=== PATIENT | female | born 1945 | race Caucasian/White ===

== ENCOUNTER 2016-08-29 17:15 | Emergency (ER) | payer MEDICARE, BC ==
--- NOTE | 2016-08-29 17:29 | EDM.PDOC ---
ED HPI GENERAL MEDICAL PROBLEM - General Stated Complaint: LT ARM INJURY Time Seen by Provider: 08/29/16 17:15 Source of Information: Reports: Patient, Family History Limitations: Reports: No Limitations - History of Present Illness INITIAL COMMENTS - FREE TEXT/NARRATIVE: 70 years old w f fell while walking her dog onto her left forearm. Pt walked into the ed, holding her left wrist close to her trunk. Pt denied other symptoms beside the left wrist pain with movement. Onset: Sudden Onset Date: 08/29/16 Onset Time: 16:20 Duration: Minutes: Location: Reports: Upper Extremity, Left Quality: Reports: Ache Severity: Moderate Improves with: Reports: Immobilization Worsens with: Reports: Movement Context: Reports: Trauma Associated Symptoms: Reports: No Other Symptoms - Related Data Allergies Allergy/AdvReac Type Severity Reaction Status Date / Time ketorolac [From Toradol] Allergy Rash Verified 08/29/16 18:07 Home Meds: Home Meds Fexofenadine [Victoria] 180 mg PO DAILY 08/29/16 [History] Fluticasone Propionate [Fluticasone Propionate] 2 sprays MAIKEL DAILY 08/29/16 [ History] Levothyroxine Sodium [Synthroid] 150 mg PO DAILY 08/29/16 [History] Review of Systems - Review of Systems Review Of Systems: See Below Constitutional: Reports: No Symptoms Eyes: Reports: No Symptoms Ears: Reports: No Symptoms Nose: Reports: No Symptoms Mouth/Throat: Reports: No Symptoms Respiratory: Reports: No Symptoms Cardiovascular: Reports: No Symptoms GI/Abdominal: Reports: No Symptoms Genitourinary: Reports: No Symptoms Musculoskeletal: Reports: Joint Pain (left wrist) Skin: Reports: No Symptoms Neurological: Reports: No Symptoms Psychiatric: Reports: No Symptoms Trauma Exam - Physical Exam Exam: See Below Exam Limited By: No Limitations General Appearance: Reports: Alert, WD/WN, Mild Distress Head: Reports: Atraumatic, Normocephalic Eyes: Bilateral Eye: Normal Inspection Ears: Reports: Normal External Exam, Normal Canal Nose: Reports: Normal Inspection, Normal Mucousa, No Blood Throat/Mouth: Reports: Normal Inspection, Normal Lips, Normal Teeth Neck: Reports: Non-Tender, Full Range of Motion, Normal Alignment, Normal Inspection Respiratory Exam: Reports: No Respiratory Distress, Lungs Clear, Normal Breath Sounds, No Accessory Muscle Use, Chest Non-Tender Cardiovascular: Reports: Normal Peripheral Pulses, Regular Rate, Rhythm, No Edema GI/Abdominal: Reports: Normal Bowel Sounds, Soft, Non-Tender (Female) Exam: Deferred Rectal (Female) Exam: Deferred Back: Reports: Full Range of Motion, Normal Inspection, Non-Tender Extremities: Bony-Point Tenderness (left wrist), Pain with Movement, Tenderness 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 Pt walked into the ed, holding her left wrist close to her trunk. Pt denied other symptoms beside the left wrist pain with movement. PE: deformity left wrist, CAP refill <2 sec, Limited ROM due to pain Imaging: Closed comminuted left distal radius fx Impression: Closed comminuted left distal radius fx Procedure: Splint application, long, left arm Tx: Motrin (not allergic to motrin) Reexam: Improved Consultation: Dr. Lewis, Ortho: Pt needs to see a hand surgeon Consultation: Dr. Bryant, Hand surgeon, [facility]: Can see her tomorrow, surgery next week. Plab: D/c home with instructions Last Recorded V/S: Last Vital Signs Temp 36.7 C 08/29/16 18:00 Pulse 60 08/29/16 18:00 Resp 18 08/29/16 18:00 BP 141/86 H 08/29/16 18:00 Pulse Ox 99 08/29/16 18:00 - Orders/Labs/Meds Orders: Active Orders 24 hr Category Date Time Status Forearm 2V Lt [CR] Stat Exams 08/29/16 17:24 Taken Meds: Medications Discontinued Medications Generic Name Dose Route Start Last Admin Trade Name Freq PRN Reason Stop Dose Admin Ibuprofen 600 mg 08/29/16 18:08 08/29/16 18:18 Motrin PO 08/29/16 18:09 600 mg ONETIME ONE Administration Departure - Departure Time of Disposition: 18:59 Disposition: Home, Self-Care 01 Condition: good Clinical Impression: Wrist fracture, left Qualifiers: Encounter type: initial encounter Fracture type: closed Qualified Code(s): S62.102A - Fracture of unspecified carpal bone, left wrist, initial encounter for closed fracture Fall Qualifiers: Encounter type: initial encounter Qualified Code(s): W19.XXXA - Unspecified fall, initial encounter - Discharge Information Referrals: Hui Torres PA [Primary Care Provider] - Forms: ED Department Discharge Additional Instructions: Rest, ICE and elevation of left arm, Vicodin for severe pain, Please call Dr. Bryant tomorrow for an appointment, phone number: [phone], Please come back to the ed if your symptoms get worse acutely. - My Orders Last 24 Hours: My Active Orders 08/29/16 17:24 Forearm 2V Lt [CR] Stat - Assessment/Plan Last 24 Hours: My Active Orders 08/29/16 17:24 Forearm 2V Lt [CR] Stat
[2016-08-29 18:07] VITALS: BP 141/86
[2016-08-29] MEDS ORDERED: Ibuprofen 600 MG Tab PO ONE (18:08)
[2016-08-29] MEDS ORDERED: Acetaminophen/HYDROcodone 325-5 MG Tab PO ONE (19:05)
--- NOTE | 2016-08-30 10:26 | CR ---
INDICATION: Tripped while walking dog. Wrist pain. LEFT FOREARM: Three views of the left forearm revealed a comminuted fracture of the distal radial metaphysis with anterior angulation at the fracture site and marked dorsal angulation of the radial joint surface. An ulnar styloid fracture is also noted and appears comminuted. Shift of ulnar styloid fracture fragments laterally is noted. The distal radial fracture fragments are slightly laterally shifted. The fracture lines extend through the joint surface with slight separation. Degenerative changes are noted at the first metacarpal carpal joint and navicular multangular joints. IMPRESSION: Colles' fracture of the radius and ulna with significant deformity. MTDD
== END 2016-08-29 19:20 | disposition home or self-care (01) ==
LOC: FB.ED 17:15
DX: S52.532A Colles' fracture of left radius, initial encounter for closed fracture (principal); S52.602A Unspecified fracture of lower end of left ulna, initial encounter for closed fracture; Z88.8 Allergy status to other drugs, medicaments and biological substances; Z79.899 Other long term (current) drug therapy; W19.XXXA Unspecified fall, initial encounter
CPT/HCPCS: 29105; 73090; 99283; A9270

== ENCOUNTER 2016-08-31 19:36 | Emergency (ER) | payer MEDICARE, BC ==
[2016-08-31] MEDS ORDERED: Acetaminophen/HYDROcodone 325-5 MG Tab PO ONE (20:52)
[2016-08-31] MEDS ORDERED: traMADol 50 MG Tab PO ONE (20:52)
[2016-08-31 20:57] VITALS: BP 134/72
--- NOTE | 2016-09-01 04:28 | ER ---
DATE SEEN: 08/31/2016 REASON FOR VISIT: Left fractured wrist. HISTORY OF PRESENT ILLNESS: A 70-year-old female with a fracture of the left wrist. She has surgery coming up next week, but the pain is throbbing type on the splint that was placed. She has been taking hydrocodone at night with some improvement. Because of the upcoming surgery, she cannot use NSAIDs. CURRENT MEDICATIONS: Reviewed. ALLERGIES: She is allergic to codeine, penicillins, and ketorolac. PHYSICAL EXAMINATION: GENERAL: She is not in distress. VITAL SIGNS: Her blood pressure is normal. She is afebrile. EXTREMITIES: Left wrist revealed an ulnar gutter splint, which was removed. There was swelling of the dorsum, but peripheral pulses are present, and there were good capillary refills peripherally. LABORATORY DATA: X-ray was reviewed that showed compacted fracture of the radius. IMPRESSION: Radial fracture. PLAN: I removed the splint and replaced it a brace that is removable. She will continue ice and elevation. A new prescription for hydrocodone 1 tablet t.i.d. p.r.n. was given and follow up with Dr. Bryant next week for surgical treatment. TIME SEEN: 8:45 p.m. /[id number] LUKAS/MARQUIS
== END 2016-08-31 20:40 | disposition home or self-care (01) ==
LOC: FB.ED 19:36
DX: S52.92XA Unspecified fracture of left forearm, initial encounter for closed fracture (principal); Z88.0 Allergy status to penicillin; Z88.6 Allergy status to analgesic agent; X58.XXXA Exposure to other specified factors, initial encounter
CPT/HCPCS: 29125; 99283; A9270-GY

== ENCOUNTER 2017-12-22 08:53 | Emergency (ER) | payer MEDICARE, BC ==
--- NOTE | 2017-12-22 09:30 | EDM.PDOC ---
ED HPI GENERAL MEDICAL PROBLEM - General Chief Complaint: Neuro Symptoms/Deficits Stated Complaint: POSSIBLE STOKE Time Seen by Provider: 12/22/17 08:55 Source of Information: Reports: Patient History Limitations: Reports: Altered Mental Status - History of Present Illness INITIAL COMMENTS - FREE TEXT/NARRATIVE: 72 y.o.w.f wit PTSD came to the ED with neighbors because she woke up this morning and was confused, had a burning sensation at her right pos xander. Has difficulty finding the words. Denied stroke symptoms in the past. pt is able to walk fine and denies any weakness of loss of neurological function. No palpitatins, no C/P no N/V/D or dizziness or any other acute medical issues. BP 152/80 RR 17 pulse ox 100% on RA pulse 73 temp 98.6 Onset Date: 12/22/17 Onset Time: 06:00 Duration: Hour(s):, Intermittent Location: Reports: Head Quality: Reports: Other (forgetfulness) Severity: Mild Improves with: Reports: None Worsens with: Reports: None Context: Reports: Other (HTN, Choesterol?) Associated Symptoms: Reports: Confusion - Related Data Allergies Allergy/AdvReac Type Severity Reaction Status Date / Time ketorolac [From Toradol] Allergy Rash Verified 12/22/17 09:32 Penicillins Allergy Rash Verified 12/22/17 09:32 tramadol Allergy Rash Verified 12/22/17 09:32 Home Meds: Home Meds Fexofenadine [Victoria] 180 mg PO DAILY 08/29/16 [History] Fluticasone Propionate 2 sprays MAIKEL DAILY 08/29/16 [History] Levothyroxine Sodium [Synthroid] 150 mg PO DAILY 08/29/16 [History] Lansoprazole [Prevacid] 30 mg PO DAILY 12/22/17 [History] PARoxetine HCl [Paroxetine Cr] 25 mg PO DAILY 12/22/17 [History] Past Medical History Gastrointestinal History: Reports: GERD Psychiatric History: Reports: Anxiety, Depression, PTSD - Past Surgical History Musculoskeletal Surgical History: Reports: Other (See Below) Other Musculoskeletal Surgeries/Procedures:: rotator cuff Social & Family History - Caffeine Use Caffeine Use: Reports: Coffee Other Caffeine Use: Pt drinks two cups of coffee a day. ED ROS GENERAL - Review of Systems Review Of Systems: See Below Constitutional: Reports: No Symptoms HEENT: Reports: No Symptoms Respiratory: Reports: No Symptoms Cardiovascular: Reports: No Symptoms Endocrine: Reports: No Symptoms GI/Abdominal: Reports: No Symptoms : Reports: No Symptoms Musculoskeletal: Reports: No Symptoms Skin: Reports: No Symptoms Neurological: Reports: Confusion, Numbness (right post xander, described as burning(?)), Other (word finding difficulties) Psychiatric: Reports: No Symptoms Hematologic/Lymphatic: Reports: No Symptoms Immunologic: Reports: No Symptoms ED EXAM, NEURO - Physical Exam Exam: See Below Exam Limited By: Altered Mental Status General Appearance: Alert, WD/WN, Mild Distress Eye Exam: Bilateral Eye: Normal Inspection Ears: Normal External Exam Nose: Normal Inspection Throat/Mouth: Normal Inspection, Normal Lips, Normal Voice, No Airway Compromise Head Exam: Atraumatic, Normocephalic Neck: Normal Inspection, Supple, Non-Tender, Full Range of Motion Respiratory/Chest: No Respiratory Distress, Lungs Clear, Normal Breath Sounds, Chest Non-Tender Cardiovascular: Normal Peripheral Pulses, Regular Rate, Rhythm, No Edema, No Gallop, No Murmur, No Rub GI/Abdominal: Normal Bowel Sounds, Soft, Non-Tender, No Organomegaly, No Distention, No Abnormal Bruit, No Mass, Pelvis Stable (Female) Exam: Deferred Rectal (Female) Exam: Deferred Neurological: Alert, Normal Dorsiflexion, CN II-XII Intact, Normal Plantar Flexion, Normal Gait, Oriented x 3 Back Exam: Normal Inspection Extremities: Normal Inspection Psychiatric: Normal Affect, Normal Mood Skin Exam: Warm, Dry, Intact, Normal Color, No Rash EKG INTERPRETATION EKG Date: 12/22/17 Time: 10:10 Rhythm: NSR Rate (Beats/Min): 66 [place]: Normal P-Wave: Present QRS: Normal ST-T: Normal QT: Normal Comparison: NA - No Prior EKG EKG Interpretation Comments: occ pvcs Course - Vital Signs Text/Narrative:: 72 y.o.w.f wit PTSD came to the ED with neighbors because she woke up this morning and was confused, had a burning sensation at her right pos xander. Has difficulty finding the words. Denied stroke symptoms in the past. pt is able to walk fine and denies any weakness of loss of neurological function. No palpitatins, no C/P no N/V/D or dizziness or any other acute medical issues. BP 152/80 RR 17 pulse ox 100% on RA pulse 73 temp 98.6 PE: WNWN anxious W F with word finding difficulties, in NAD, pt was ambulating fine, no focal weakness Labs: WBC 2.7 Neutros 48% Na 133 Cholesterol 243, reminder of the lab was neg. Imaging: CT head: Poss minor lacunar infarct (old) MRI: No acute intracranial findings, age related changes are present Impression: Elevated BP, Elevated cholesterol, neutopenia TxL Clonidine. Reexam: pt was doing fine in the ed. her bP improved to 143/70 Plan: D/C with instructions Last Recorded V/S: Last Vital Signs Temp 36.6 C 12/22/17 11:00 Pulse 87 12/22/17 08:55 Resp 18 12/22/17 12:15 BP 130/98 H 12/22/17 12:22 Pulse Ox 99 12/22/17 12:15 - Orders/Labs/Meds Orders: Active Orders 24 hr Category Date Time Status EKG Documentation Completion [RC] ASDIRECTED Care 12/22/17 10:04 Inactive Brain wo Cont [MR] Stat Exams 12/22/17 10:17 Taken UA W/MICROSCOPIC [URIN] Stat Lab 12/22/17 10:15 Ordered EKG 12 Lead [EK] Routine Ther 12/22/17 10:03 Ordered EKG 12 Lead [EK] Routine Ther 12/22/17 10:03 Stop Req Labs: Laboratory Tests 12/22/17 12/22/17 12/22/17 Range/Units 09:37 09:37 09:37 WBC 2.9 L (4.5-12.0) X10-3/uL RBC 4.70 (3.23-5.20) x10(6)uL Hgb 14.7 (11.5-15.5) g/dL Hct 43.9 (30.0-51.3) % MCV 93.5 (80-96) fL MCH 31.4 (27.7-33.6) pg MCHC 33.5 (32.2-35.4) g/dL RDW 12.4 (11.5-15.5) % Plt Count 254 (125-369) X10(3)uL MPV 9.1 (7.4-10.4) fL Neut % (Auto) 45.9 L (46-82) % Lymph % (Auto) 40.0 H (13-37) % [place] % (Auto) 10.6 (4-12) % Eos % (Auto) 2 (1.0-5.0) % Baso % (Auto) 2 (0-2) % Neut # (Auto) 1.4 L (1.6-8.3) # Lymph # (Auto) 1.1 (0.6-5.0) # [place] # (Auto) 0.3 (0.0-1.3) # Eos # (Auto) 0.1 (0.0-0.8) # Baso # (Auto) 0.0 (0.0-0.2) # PT 9.9 (8.7-11.1) INR 1.02 (0.89-1.13) Sodium 134 L (135-145) mmol/L Potassium 4.4 (3.5-5.3) mmol/L Chloride 102 (100-110) mmol/L Carbon Dioxide 27 (21-32) mmol/L BUN 11 (7-18) mg/dL Creatinine 0.8 (0.55-1.02) mg/dL Est Cr Clr Drug Dosing 58.88 mL/min Estimated GFR (MDRD) > 60 (>60) BUN/Creatinine Ratio 13.8 (9-20) Glucose 105 (80-116) mg/dL Calcium 9.4 (8.6-10.2) mg/dL Triglycerides (15-150) mg/dL Cholesterol (50-200) mg/dL LDL Cholesterol Direct (60-130) mg/dL HDL Cholesterol (40-75) mg/dL Cholesterol/HDL Ratio (0-5) TSH, Ultra Sensitive (0.36-3.74) IU/mL Urine Color (YELLOW) Urine Appearance (CLEAR) Urine pH (5.0-6.5) Ur Specific [place] (1.010-1.025) Urine Protein (NEGATIVE) mg/dL Urine Glucose (UA) (NEGATIVE) mg/dL Urine Ketones (NEGATIVE) mg/dL Urine Occult Blood (NEGATIVE) Urine Nitrite (NEGATIVE) Urine Bilirubin (NEGATIVE) Urine Urobilinogen (NEGATIVE) mg/dL Ur Leukocyte Esterase (NEGATIVE) Urine WBC (0) Ur Squamous Epith Cells (NS,R,O) Urine Bacteria (NS) 12/22/17 12/22/17 12/22/17 Range/Units 09:37 09:37 10:15 WBC (4.5-12.0) X10-3/uL RBC (3.23-5.20) x10(6)uL Hgb (11.5-15.5) g/dL Hct (30.0-51.3) % MCV (80-96) fL MCH (27.7-33.6) pg MCHC (32.2-35.4) g/dL RDW (11.5-15.5) % Plt Count (125-369) X10(3)uL MPV (7.4-10.4) fL Neut % (Auto) (46-82) % Lymph % (Auto) (13-37) % [place] % (Auto) (4-12) % Eos % (Auto) (1.0-5.0) % Baso % (Auto) (0-2) % Neut # (Auto) (1.6-8.3) # Lymph # (Auto) (0.6-5.0) # [place] # (Auto) (0.0-1.3) # Eos # (Auto) (0.0-0.8) # Baso # (Auto) (0.0-0.2) # PT (8.7-11.1) INR (0.89-1.13) Sodium (135-145) mmol/L Potassium (3.5-5.3) mmol/L Chloride (100-110) mmol/L Carbon Dioxide (21-32) mmol/L BUN (7-18) mg/dL Creatinine (0.55-1.02) mg/dL Est Cr Clr Drug Dosing mL/min Estimated GFR (MDRD) (>60) BUN/Creatinine Ratio (9-20) Glucose (80-116) mg/dL Calcium (8.6-10.2) mg/dL Triglycerides 53 (15-150) mg/dL Cholesterol 245 H (50-200) mg/dL LDL Cholesterol Direct 148 H (60-130) mg/dL HDL Cholesterol 75 (40-75) mg/dL Cholesterol/HDL Ratio 3.3 (0-5) TSH, Ultra Sensitive 1.35 (0.36-3.74) IU/mL Urine Color Yellow (YELLOW) Urine Appearance Clear (CLEAR) Urine pH 7.0 H (5.0-6.5) Ur Specific [place] 1.005 L (1.010-1.025) Urine Protein Negative (NEGATIVE) mg/dL Urine Glucose (UA) Normal (NEGATIVE) mg/dL Urine Ketones Negative (NEGATIVE) mg/dL Urine Occult Blood Negative (NEGATIVE) Urine Nitrite Negative (NEGATIVE) Urine Bilirubin Negative (NEGATIVE) Urine Urobilinogen Normal (NEGATIVE) mg/dL Ur Leukocyte Esterase Negative (NEGATIVE) Urine WBC 0-5 (0) Ur Squamous Epith Cells Occasional (NS,R,O) Urine Bacteria Few H (NS) Meds: Medications Discontinued Medications Generic Name Dose Route Start Last Admin Trade Name Freq PRN Reason Stop Dose Admin Clonidine HCl 0.1 mg 12/22/17 10:29 12/22/17 12:22 Catapres PO 12/22/17 10:30 0.1 mg ONETIME ONE Administration Departure - Departure Time of Disposition: 12:30 Disposition: Home, Self-Care 01 Condition: Good Clinical Impression: Elevated cholesterol, Neutropenic, Elevated blood pressure reading - Discharge Information Instructions: DASH Eating Plan, Hypertension, [id number] Referrals: Hui Torres PA [Primary Care Provider] - Forms: ED Department Discharge Additional Instructions: Please check your BP daily, cut down on salty and spicy food, please f/u with your PMD to recheck your WBC in a few days, increase veggie intake. Please come back to the ed if your symptoms get worse acutely - My Orders Last 24 Hours: My Active Orders 12/22/17 10:03 EKG 12 Lead [EK] Routine EKG 12 Lead [EK] Routine 12/22/17 10:04 EKG Documentation Completion [RC] ASDIRECTED 12/22/17 10:15 UA W/MICROSCOPIC [URIN] Stat 12/22/17 10:17 Brain wo Cont [MR] Stat - Assessment/Plan Last 24 Hours: My Active Orders 12/22/17 10:03 EKG 12 Lead [EK] Routine EKG 12 Lead [EK] Routine 12/22/17 10:04 EKG Documentation Completion [RC] ASDIRECTED 12/22/17 10:15 UA W/MICROSCOPIC [URIN] Stat 12/22/17 10:17 Brain wo Cont [MR] Stat
[2017-12-22] MEDS ORDERED: cloNIDine 0.1 MG Tab PO ONE (10:29)
--- NOTE | 2017-12-22 10:46 | CT ---
INDICATION: Headache, right posterior parietal; confusion; forgetfulness this a.m. CT HEAD WITHOUT CONTRAST: Serial contiguous 2.5 and 5 mm sections were obtained through the brain without contrast, 12/22/2017 - no comparisons. Total exam DLP = 950.31 mGy-cm. Calcifications are noted in the internal carotid arteries. No cranial abnormality was identified. The mastoid air cells are well-aerated. In the right sphenoidal air cell, there is some localized thickening of the wall lining, which may represent a small retention cyst. Paranasal sinuses were otherwise unremarkable. The ventricles are slightly prominent, compatible with a mild degree of central atrophy. There are areas of decreased density in the white matter in a patchy fashion, most prominent in the right frontal and left posterior parietal areas. These likely represent microvascular disease, however, other etiology of leukoencephalopathy cannot be excluded. Decreased density in the area of the external capsule on the left is noted, which may represent a lacunar infarct. No finding to strongly suggest an acute thrombotic CVA or hemorrhage or hematoma was seen. IMPRESSION: 1. No definite acute intracranial abnormality. 2. Probable lacunar infarct at the external capsule on the left. 3. Cerebrovascular disease with internal carotid artery calcifications. 4. White matter changes compatible with microvascular disease but should be correlated clinically. 5. Mild central atrophy. Report was called to Dr. Ray at 0922 hours on 12/22/2017. [facility]
[2017-12-22 14:43] VITALS: BP 159/93
== END 2017-12-22 13:00 | disposition home or self-care (01) ==
LOC: FB.ED 08:53
DX: R03.0 Elevated blood-pressure reading, without diagnosis of hypertension (principal); D70.9 Neutropenia, unspecified; E78.00 Pure hypercholesterolemia, unspecified; Z79.899 Other long term (current) drug therapy
CPT/HCPCS: 36415; 70450; 70551; 80048; 80061; 81001; 84443; 85025; 85610; 93005; 99285; A9270

== ENCOUNTER 2018-05-29 06:58 | Day surgery (SDC) | payer MEDICARE, BC ==
[2018-05-29] MEDS ORDERED: Propofol 200 MG/20 ML SDV IV ONE (06:59)
[2018-05-29] MEDS ORDERED: Glycopyrrolate 0.2 MG/ML 5 ML MDV IV ONE (06:59)
[2018-05-29] MEDS ORDERED: Lidocaine 1% 30 ML SDV ONE (06:59)
[2018-05-29] MEDS ORDERED: Lactated Ringers 1,000 ML IV SCH (07:00)
--- NOTE | 2018-05-29 09:10 | PCM.OPNOTE ---
- General Post-Op/Procedure Note Date of Surgery/Procedure: 05/29/18 Operative Procedure(s): c scope Findings: sigmoid diverticulosis Pre Op Diagnosis: screening Post-Op Diagnosis: sigmoid diverticulosis Anesthesia Technique: MAC Primary Surgeon: Benjamín Hickey Anesthesia Provider: Kristian Esteban Pathology: none Complications: None Condition: Good Free Text/Narrative:: see dictation
[2018-05-29 11:04] VITALS: BP 150/80
--- NOTE | 2018-05-29 12:54 | OR ---
DATE OF OPERATION: 05/29/2018 SURGEON: Benjamín Hickey MD PROCEDURE PERFORMED: Colonoscopy. PREOPERATIVE DIAGNOSIS: Need for screening C-scope. POSTOPERATIVE DIAGNOSIS: Sigmoid diverticulosis. INDICATIONS FOR PROCEDURE: A 72-year-old white female who presents for screening colonoscopy. She was offered and accepted same. DESCRIPTION OF OPERATION: After an excellent IV sedation was administered, digital rectal exam was performed. No marked abnormality was noted. The flexible colonoscope was inserted and advanced to the cecum. Prep was excellent. The following findings were noted. Ascending colon, unremarkable. Transverse colon, unremarkable. Descending colon, unremarkable. Sigmoid, three diverticulum noted. Rectum and anus, unremarkable. Colon was deflated. Scope was removed. The patient tolerated the procedure well and was taken to recovery room in a good condition. Repeat scope in 10 years. /[id number] /MODL
== END 2018-05-29 09:59 | disposition home or self-care (01) ==
LOC: FB.SDS 06:58
PROVIDERS: ATTEND Surgery
DX: Z12.11 Encounter for screening for malignant neoplasm of colon (principal); K57.30 Diverticulosis of large intestine without perforation or abscess without bleeding; E78.00 Pure hypercholesterolemia, unspecified; K21.9 Gastro-esophageal reflux disease without esophagitis; E03.9 Hypothyroidism, unspecified; F32.9 Major depressive disorder, single episode, unspecified; F41.9 Anxiety disorder, unspecified; Z79.890 Hormone replacement therapy; Z79.899 Other long term (current) drug therapy; Z88.0 Allergy status to penicillin; Z88.5 Allergy status to narcotic agent; Z88.2 Allergy status to sulfonamides
CPT/HCPCS: 00811; G0121; J2704; J3490; J7120